=== PATIENT | male | born 1985 | race Caucasian/White ===

== ENCOUNTER 2016-05-20 18:46 | Emergency (ER) | payer SELFPAY ==
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
--- NOTE | 2016-05-20 19:29 | ED ORDER SUMMARY ---
..... Patient: CHATA ZULUAGA OrderSheet [facility] VisitID: [id number] [address] [place] [address] 30y, M Registration Date/Time: 05/20/2016 ORDER SHEET Weight: 204.1 kg (stated) Allergies: None GENERAL ORDERS: Breathalyzer (19:04 05/20/2016 HBivens A.R.N.P.) (19:17 LNations ER Tech1) MEDICATION ORDERS: IV FLUIDS: ORDER SHEET NOTES: [Electronically signed by Nathan Ibarra R.N. (21:23 05/20/2016)] [Electronically signed by Maru JefferyR.N.PEllis (21:34 05/20/2016)] [Electronically locked/signed by Nathan Ibarra R.N. (21:23 05/20/2016)]
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
--- NOTE | 2016-05-20 19:29 | ED ORDER SUMMARY ---
..... Patient: CHATA ZULUAGA OrderSheet [facility] VisitID: [id number] [address] [place] [address] 30y, M Registration Date/Time: 05/20/2016 ORDER SHEET Weight: 204.1 kg (stated) Allergies: None GENERAL ORDERS: Breathalyzer (19:04 05/20/2016 HBivens A.R.N.P.) (19:17 LNations ER Tech1) MEDICATION ORDERS: IV FLUIDS: ORDER SHEET NOTES: [Electronically signed by Nathan Ibarra R.N. (21:23 05/20/2016)] [Electronically signed by Maru JefferyR.N.PEllis (21:34 05/20/2016)] [Electronically locked/signed by Nathan Ibarra R.N. (21:23 05/20/2016)]
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
--- NOTE | 2016-05-20 21:35 | ED MED RECONCILIATION SUMMARY ---
Patient: CHATA ZULUAGA Medication Reconciliation Report [facility] VisitID: [id number] [address] [address] 30y, M Registration Date/Time: 05/20/2016 Weight: 204.1 kg Height/Length: 78 in. BMI: 52.0 ALLERGIES: None The patient's Home Medications are listed below: THE FOLLOWING MEDICATIONS NEED TO BE RECONCILED: Lisinopril Oral, pt doesn't know dose MetFORMIN HCl Oral, pt doesn't know dose The source(s) of the original Home Medication information: patient The following Medications were given to the patient in the Emergency Department: None. The following Medications were prescribed to the patient: None.
--- NOTE | 2016-05-20 21:35 | ED MED RECONCILIATION SUMMARY ---
Patient: CHATA ZULUAGA Medication Reconciliation Report [facility] VisitID: [id number] [address] [place] [address] 30y, M Registration Date/Time: 05/20/2016 Weight: 204.1 kg Height/Length: 78 in. BMI: 52.0 ALLERGIES: None The patient's Home Medications are listed below: THE FOLLOWING MEDICATIONS NEED TO BE RECONCILED: Lisinopril Oral, pt doesn't know dose MetFORMIN HCl Oral, pt doesn't know dose The source(s) of the original Home Medication information: patient The following Medications were given to the patient in the Emergency Department: None. The following Medications were prescribed to the patient: None.
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
--- NOTE | 2016-05-20 21:35 | ED MAR SUMMARY ---
..... Medication Administration Record [facility] [address] [place], [place] [id number] Patient: CHATA ZULUAGA Visit ID: [id number] 30y, M Weight: 204.1 kg Height/Length: 78 in BMI: 52 ALLERGIES: None
--- NOTE | 2016-05-20 21:35 | ED MAR SUMMARY ---
..... Medication Administration Record [facility] [address] [place], [place] [id number] Patient: CHATA ZULUAGA Visit ID: [id number] 30y, M Weight: 204.1 kg Height/Length: 78 in BMI: 52 ALLERGIES: None
== END 2016-05-20 21:19 | disposition home or self-care (01) ==
LOC: ED SRH 18:46
DX: F10.121 Alcohol abuse with intoxication delirium (principal); Z79.84 Long term (current) use of oral hypoglycemic drugs; M79.1 Myalgia; V47.0XXA Car driver injured in collision with fixed or stationary object in nontraffic accident, initial encounter; Y93.9 Activity, unspecified; Y92.9 Unspecified place or not applicable; Y99.9 Unspecified external cause status; E11.9 Type 2 diabetes mellitus without complications; I10 Essential (primary) hypertension; Z79.899 Other long term (current) drug therapy